=== PATIENT | female | born 1970 | race Caucasian/White ===

== ENCOUNTER 2017-07-27 16:50 | Outpatient (CLI) | END 2017-07-27 16:51 | disposition home or self-care (01) | LOC: LAB 16:50 | PROVIDERS: ATTEND Family Medicine | DX: R20.0 Anesthesia of skin (principal); G62.9 Polyneuropathy, unspecified; M79.89 Other specified soft tissue disorders; Z98.890 Other specified postprocedural states | CPT/HCPCS: 36415; 80053; 82607; 82746; 84436; 84443; 85025 ==

== ENCOUNTER 2017-08-09 13:58 | Outpatient (CLI) ==
--- NOTE | 2017-08-09 14:22 | DI ---
EXAM: Left ankle. Three-view HISTORY: Effusion, left ankle COMPARISON: None FINDINGS/IMPRESSION: There is a surgical screw and a cerclage wire in the distal fibula. There are multiple surgical screws and pins in the distal tibia. Hardware appears intact. Remodeling changes di stal tibia and fibula from prior trauma. No acute fracture or dislocation. Mild osteoarthritis abou t the ankle. Soft tissue swelling about the ankle. Small plantar calcaneal spur.
== END 2017-08-09 13:59 | disposition home or self-care (01) ==
LOC: RAD 13:58
PROVIDERS: ATTEND Family Medicine
DX: M25.472 Effusion, left ankle (principal)

== ENCOUNTER 2017-09-24 12:07 | Outpatient (CLI) | END 2017-09-24 12:08 | disposition home or self-care (01) | LOC: LAB 12:07 | PROVIDERS: ATTEND Family Medicine | DX: E10.9 Type 1 diabetes mellitus without complications (principal) | CPT/HCPCS: 36415; 80061; 82043; 83036 ==

== ENCOUNTER 2017-10-22 16:26 | Outpatient (CLI) ==
--- NOTE | 2017-10-23 08:18 | DI ---
EXAM: Six views of the cervical spine. History: Cervicalgia. Findings: No acute fracture or subluxation of the cervical spine. Grossly intact anterior fusion ibarra rdware from C5-T1. No prevertebral soft tissue swelling. Predental space is not widened. Oblique im ages demonstrate no significant bony neural foraminal narrowing. Impression: No acute osseous abnormality. Grossly intact hardware.
--- NOTE | 2017-10-23 08:20 | DI ---
EXAM: Five views of the lumbar spine. History: Lower back pain. Findings: No acute fracture or subluxation of the lumbar spine. Posterior fusion hardware at L4-S1. Cholecystectomy clips. Impression: No acute osseous abnormality
== END 2017-10-22 16:27 | disposition home or self-care (01) ==
LOC: RAD 16:26
PROVIDERS: ATTEND Family Medicine
DX: M54.2 Cervicalgia (principal); M54.5 Low back pain